=== PATIENT | male | born 1985 | race American Indian/Alaskan Native ===

== ENCOUNTER 2020-01-31 23:34 | Emergency (ER) | payer SELFPAY ==
[2020-01-31] MEDS ORDERED: ASPIRIN 325 MG TAB PO ONE (23:54)
[2020-02-01 00:34] LABS: Basophils % (Auto) 0.8 % (0.0-1.8); Eosinophils # (Auto) 0.1 K/mm3 (0.0-0.4); Eosinophils % (Auto) 1.6 % (0.0-4.3); Hematocrit 45.1 % (35.5-45.6); Hemoglobin 15.2 gm/dl (11.8-15.2); Lymphocytes # (Auto) 1.9 K/mm3 (1.2-5.4); Lymphocytes % (Auto) 31.3 % (13.4-35.0); Mean Corpuscular HGB Conc 34 % (32-34); Mean Corpuscular Volume 94 fl (84-94); Monocytes # (Auto) 0.5 K/mm3 (0.0-0.8); Monocytes % (Auto) 8.4 % (0.0-7.3); Platelet Count 275 K/mm3 (140-440); Red Blood Count 4.79 M/mm3 (3.65-5.03); Red Cell Distribution Width 14.5 % (13.2-15.2)
--- NOTE | 2020-02-01 00:34 | Emergency Department Report ---
ED Chest Pain HPI - General Chief Complaint: Chest Pain Stated Complaint: CHEST PAIN, DIFFICULTY IN BREATHING Time Seen by Provider: 02/01/20 00:20 Source: patient Mode of arrival: Ambulatory Limitations: No Limitations - History of Present Illness Initial Comments: This is a 34-year-old -[place] male who presents to the emergency department with a complaint of chest pain/discomfort that has been going on for the past 5 to 6 days. Sometimes the pain is left-sided, and other times he will feel it on the right side. The pain worsens with certain movements of his torso or upper extremities. Sometimes the pain is sharp and intense, but short lived. Other times the patient says "it just makes me feel weird in my chest and I not like that feeling." Currently the patient denies any pain at rest. He also denies any fever, back pain, shortness of breath, lower extremity swelling, nausea, vomiting or diaphoresis. Patient has tried Excedrin and aspirin at different times over the past few days without much relief. He does have a history of a previous pulmonary embolism from July of this year. He took Eliquis for about 3 to 4 months and then stopped it on his own as he thought he did not need it any further. He is a former smoker. No primary care physician. No recent travel or sick contacts at home. - Related Data Allergies Allergy/AdvReac Type Severity Reaction Status Date / Time No Known Allergies Allergy Verified 02/01/20 00:21 Heart Score - HEART Score History: Slightly suspicious EKG: Non-specific Age: < 45 Risk factors: No known risk factors Troponin: < normal limit HEART Score: 1 - Critical Actions Critical Actions: 0-3 pts:0.9-1.7%risk of adverse cardiac event.Candidate for discharge ED Review of Systems ROS: Stated complaint: CHEST PAIN, DIFFICULTY IN BREATHING Other details as noted in HPI Comment: All other systems reviewed and negative Constitutional: denies: chills, fever Eyes: denies: eye pain, vision change ENT: denies: ear pain, throat pain Respiratory: denies: cough, shortness of breath Cardiovascular: chest pain. denies: palpitations Gastrointestinal: denies: abdominal pain, vomiting Genitourinary: denies: dysuria, discharge Musculoskeletal: denies: back pain, arthralgia Skin: denies: rash, lesions Neurological: denies: headache, weakness ED Past Medical Hx - Past Medical History Hx Pulmonary Embolism: Yes (07/2019) - Surgical History Past Surgical History?: No - Social History Smoking Status: Never Smoker Substance Use Type: Alcohol, Marijuana ED Physical Exam - General Limitations: No Limitations - Other Other exam information: GENERAL: The patient is well-developed well-nourished. HENT: Normocephalic. Atraumatic. Patient has moist mucous membranes. EYES: Extraocular motions are intact. NECK: Supple. Trachea is midline. CHEST/LUNGS: Clear to auscultation. There is no respiratory distress noted. Un able to reproduce chest pain to palpation. However, able to elicit some pain with movement of the left upper extremity. HEART/CARDIOVASCULAR: Regular. There is no tachycardia. There is no murmur. ABDOMEN: Abdomen is soft, nontender. Patient has normal bowel sounds. SKIN: Skin is warm and dry. NEURO: The patient is awake, alert, and oriented. The patient is cooperative. The patient has no focal neurologic deficits. Normal speech. MUSCULOSKELETAL: There is no tenderness or deformity. There is no limitation range of motion. ED Course Vital Signs 01/31/20 02/01/20 23:51 04:18 Temperature 98.5 F Pulse Rate 76 Respiratory 18 20 Rate Blood Pressure 105/78 O2 Sat by Pulse 100 Oximetry - Reevaluation(s) Reevaluation #1: 02/01/20 04:44 Lab Results 02/01/20 02/01/20 02/01/20 Range/Units 00:18 00:18 00:28 WBC 6.1 (4.5-11.0) K/mm3 RBC 4.79 (3.65-5.03) M/mm3 Hgb 15.2 (11.8-15.2) gm/dl Hct 45.1 (35.5-45.6) % MCV 94 (84-94) fl MCH 32 (28-32) pg MCHC 34 (32-34) % RDW 14.5 (13.2-15.2) % Plt Count 275 (140-440) K/mm3 Lymph % (Auto) 31.3 (13.4-35.0) % Aiken % (Auto) 8.4 H (0.0-7.3) % Eos % (Auto) 1.6 (0.0-4.3) % Baso % (Auto) 0.8 (0.0-1.8) % Lymph # (Auto) 1.9 (1.2-5.4) K/mm3 Aiken # (Auto) 0.5 (0.0-0.8) K/mm3 Eos # (Auto) 0.1 (0.0-0.4) K/mm3 Baso # (Auto) 0.0 (0.0-0.1) K/mm3 Seg Neutrophils % 57.9 (40.0-70.0) % Seg Neutrophils # 3.5 (1.8-7.7) K/mm3 PT 12.7 (12.2-14.9) Sec. INR 0.96 (0.87-1.13) D-Dimer 135.00 (0-234) ng/mlDDU Sodium 137 (137-145) mmol/L Potassium 4.1 (3.6-5.0) mmol/L Chloride 100.7 (98-107) mmol/L Carbon Dioxide 24 (22-30) mmol/L Anion Gap 16 mmol/L BUN 11 (9-20) mg/dL Creatinine 1.0 (0.8-1.3) mg/dL Estimated GFR > 60 ml/min BUN/Creatinine Ratio 11 % Glucose 112 H (75-100) mg/dL Calcium 9.7 (8.4-10.2) mg/dL Troponin T < 0.010 (0.00-0.029) ng/mL 02/01/20 Range/Units 03:13 WBC (4.5-11.0) K/mm3 RBC (3.65-5.03) M/mm3 Hgb (11.8-15.2) gm/dl Hct (35.5-45.6) % MCV (84-94) fl MCH (28-32) pg MCHC (32-34) % RDW (13.2-15.2) % Plt Count (140-440) K/mm3 Lymph % (Auto) (13.4-35.0) % Aiken % (Auto) (0.0-7.3) % Eos % (Auto) (0.0-4.3) % Baso % (Auto) (0.0-1.8) % Lymph # (Auto) (1.2-5.4) K/mm3 Aiken # (Auto) (0.0-0.8) K/mm3 Eos # (Auto) (0.0-0.4) K/mm3 Baso # (Auto) (0.0-0.1) K/mm3 Seg Neutrophils % (40.0-70.0) % Seg Neutrophils # (1.8-7.7) K/mm3 PT (12.2-14.9) Sec. INR (0.87-1.13) D-Dimer (0-234) ng/mlDDU Sodium (137-145) mmol/L Potassium (3.6-5.0) mmol/L Chloride (98-107) mmol/L Carbon Dioxide (22-30) mmol/L Anion Gap mmol/L BUN (9-20) mg/dL Creatinine (0.8-1.3) mg/dL Estimated GFR ml/min BUN/Creatinine Ratio % Glucose (75-100) mg/dL Calcium (8.4-10.2) mg/dL Troponin T < 0.010 (0.00-0.029) ng/mL Reevaluation #2: 02/01/20 04:44 Vital Signs 01/31/20 02/01/20 23:51 04:18 Temperature 98.5 F Pulse Rate 76 Respiratory 18 20 Rate Blood Pressure 105/78 O2 Sat by Pulse 100 Oximetry MATTY score - Matty Score Age > 65: (0) No Aspirin use within the Past 7 Days: (0) No 3 or more CAD Risk Factors: (0) No 2 or more Angina events in past 24 hrs: (1) Yes Known CAD with more than 50% Stenosis: (0) No Elevated Cardiac Markers: (0) No ST Deviation Greater than 0.5mm: (1) Yes MATTY Score: 2 ED Medical Decision Making - Lab Data Result diagrams: 02/01/20 00:18 02/01/20 00:18 - EKG Data -: EKG Interpreted by Mi EKG shows normal: sinus rhythm, axis, intervals, QRS complexes (Right bundle branch block, Q waves to the inferior leads), ST-T waves Rate: normal - EKG Data When compared to previous EKG there are: previous EKG unavailable Interpretation: other (Sinus rhythm, normal axis, normal intervals, right bundle branch block, Q waves in inferior leads. No ST elevation myocardial infarction.) - Radiology Data Radiology results: report reviewed, image reviewed interpreted by me: Chest x-ray does not show any acute process. There are no pleural effusions, obvious pneumonia and there is no pneumothorax. No significant cardiomegaly. CTA CHEST WITH IV CONTRAST INDICATION / CLINICAL INFORMATION: CP, hx of PE. TECHNIQUE: Axial CT images were obtained through the chest after injection of 100 mL Omnipaque 350 IV contrast. 3 plane MIP and/or 3D reconstructions were produced. All CT scans at this location are p erformed using CT dose reduction for ALARA by means of automated exposure control. COMPARISON: Chest radiograph same day FINDINGS: PULMONARY ARTERIES: No pulmonary emboli. THORACIC AORTA: No significant abnormality. HEART: No significant abnormality. CORONARY ARTERIES: No significant calcification. PLEURA: No pleural effusion. No pneumothorax. LYMPH NODES: There is a mildly enlarged right axillary lymph node measuring up to 2.5 x 1.6 cm (series 2, image 16). LUNGS: No acute air space or interstitial disease. Mild to moderate paraseptal emphysema. ADDITIONAL FINDINGS: None. UPPER ABDOMEN: No acute findings. SKELETAL STRUCTURES: No significant osseous abnormality. IMPRESSION: 1. No CT evidence for pulmonary embolism. 2. No acute findings. 3. Paraseptal emphysema. 4. Mildly enlarged right axillary lymph node, nonspecific. Recommend clinical correlation for potential cause of a reactive lymph node, and consider short interval follow-up right axillary ultra sound in 3-6 months to ensure stability or resolution. - Medical Decision Making This patient presents to the emergency department with a complaint of a 5 to 6- day history of intermittent chest pain. The location of the patient's pain will change from left-sided to right-sided at different points. He denies any shortness of breath, back pain, vomiting, diaphoresis. On examination the heart and lung sounds are normal to auscultation. Unable to reproduce the pain to palpation of the chest wall. However, we were able to reproduce the pain with both passive and active movement of the left upper extremity. EKG shows a right bundle branch block but no morphology consistent with ST elevation myocardial infarction. Chest x-ray did not show any acute process. Patient's labs were mostly unremarkable including CBC, metabolic panel, and negative troponins x2. The patient did have a negative D-dimer. However, he has a history of recent pulmonary embolism with noncompliance with anticoagulation. For this reason I decided to do a CT angiography of the chest, but it did not show any pulmonary embolism. There was an incidental finding of some axillary lymphadenopathy and some septal emphysema. The patient is low on the heart and MATTY score. Vital signs have been reassuring throughout his ED course including being afebrile. For all these reasons the patient appears safe for discharge home at this time. His contact information has been sent over to the [facility] and vascular [place], and someone from their office should be contacting him shortly for close outpatient follow-up as part of our [facility] low risk chest pain protocol. He will return to the emergency department with any worsening of his symptoms or with any acute distress. Critical Care Time: No Critical care attestation.: If time is entered above; I have spent that time in minutes in the direct care of this critically ill patient, excluding procedure time. ED Disposition Clinical Impression: Intermittent chest pain, Right bundle branch block (RBBB) on electrocardiogram (ECG) Disposition: -01 TO HOME OR SELFCARE Is pt being admited?: No Condition: Stable Instructions: Right Bundle Branch Block, Nonspecific Chest Pain, Adult, Chest Pain (ED) Additional Instructions: Please follow-up with a primary care physician in the next few days. I am sending your contact information over to the [facility] [place], and someone from their office should be contacting you shortly for close outpatient follow-up. I will also give you a referral for one of their cardiologists in case you would like to make your own appointment. Return to the emergency department with any worsening of your symptoms, new or concerning symptoms not addressed during this current emergency department visit, or with any acute distress. Referrals: IRENE AQUINO MD [Primary Care Provider] - 2-3 Days RANGEL CONNER MD [Staff Physician] - 2-3 Days [facility] [Provider Group] - 2-3 Days Time of Disposition: 04:03
--- NOTE | 2020-02-01 00:48 | XRay Report ---
CHEST 1 VIEW INDICATION / CLINICAL INFORMATION: Chest Pain. COMPARISON: None available. FINDINGS: SUPPORT DEVICES: None. HEART / MEDIASTINUM: No significant abnormality. LUNGS / PLEURA: No significant pulmonary or pleural abnormality. No pneumothorax. ADDITIONAL FINDINGS: No significant additional findings. IMPRESSION: 1. No acute findings. Signer Name: Maura Lincoln MD Signed: 02/01/2020 12:44 AM Workstation Name: [id number]
[2020-02-01 00:52] LABS: BUN/Creatinine Ratio 11; Blood Urea Nitrogen 11 mg/dL (9-20); Calcium 9.7 mg/dL (8.4-10.2); Hemolysis Index 8
[2020-02-01 00:58] LABS: INR 0.96 (0.87-1.13)
--- NOTE | 2020-02-01 02:18 | Cat Scan Report ---
CTA CHEST WITH IV CONTRAST INDICATION / CLINICAL INFORMATION: CP, hx of PE. TECHNIQUE: Axial CT images were obtained through the chest after injection of 100 mL Omnipaque 350 IV contrast. 3 plane MIP and/or 3D reconstructions were produced. All CT scans at this location are performed usin g CT dose reduction for KAREEM by means of automated exposure control. COMPARISON: Chest radiograph same day FINDINGS: PULMONARY ARTERIES: No pulmonary emboli. THORACIC AORTA: No significant abnormality. HEART: No significant abnormality. CORONARY ARTERIES: No significant calcification. PLEURA: No pleural effusion. No pneumothorax. LYMPH NODES: There is a mildly enlarged right axillary lymph node measuring up to 2.5 x 1.6 cm (serie s 2, image 16). LUNGS: No acute air space or interstitial disease. Mild to moderate paraseptal emphysema. ADDITIONAL FINDINGS: None. UPPER ABDOMEN: No acute findings. SKELETAL STRUCTURES: No significant osseous abnormality. IMPRESSION: 1. No CT evidence for pulmonary embolism. 2. No acute findings. 3. Paraseptal emphysema. 4. Mildly enlarged right axillary lymph node, nonspecific. Recommend clinical correlation for potenti al cause of a reactive lymph node, and consider short interval follow-up right axillary ultrasound in 3-6 months to ensure stability or resolution. Signer Name: Maura Lincoln MD Signed: 02/01/2020 2:13 AM Workstation Name: Owned it
[2020-02-01] MEDS ORDERED: KETOROLAC 30 MG/1 ML INJ IV ONE (02:35)
[2020-02-01 05:00] VITALS: BP 116/74
== END 2020-02-01 05:30 | disposition home or self-care (01) ==
LOC: ED 23:34
DX: R07.89 Other chest pain (principal); I45.19 Other right bundle-branch block
CPT/HCPCS: 36415; 71045; 71275; 80048; 84484; 85025; 85379; 85610; 93005; 96374; 99285; J1885; Q9967

== ENCOUNTER 2021-08-01 22:26 | Emergency (ER) | payer SELFPAY ==
[2021-08-01] MEDS ORDERED: ASPIRIN 325 MG TAB PO ONE (22:38)
--- NOTE | 2021-08-01 23:03 | XRay Report ---
CHEST 2 VIEWS INDICATION / CLINICAL INFORMATION: CHEST PAIN. COMPARISON: 02/01/2020 FINDINGS: SUPPORT DEVICES: None. HEART / MEDIASTINUM: No significant abnormality. LUNGS / PLEURA: No significant pulmonary or pleural abnormality. No pneumothorax. ADDITIONAL FINDINGS: No significant additional findings. IMPRESSION: 1. No acute findings. Signer Name: Fahad Johnston MD Signed: 08/01/2021 10:58 PM Workstation Name: [id number]
[2021-08-01 23:44] LABS: Basophils # (Auto) 0.1 K/mm3 (0.0-0.1); Eosinophils # (Auto) 0.1 K/mm3 (0.0-0.4); Eosinophils % (Auto) 1.2 % (0.0-4.3); Hematocrit 41.3 % (35.5-45.6); Hemoglobin 13.7 gm/dl (11.8-15.2); Lymphocytes % (Auto) 34.9 % (13.4-35.0); Mean Corpuscular HGB Conc 33 % (32-34); Mean Corpuscular Volume 93 fl (84-94); Monocytes # (Auto) 0.4 K/mm3 (0.0-0.8); Monocytes % (Auto) 7.8 % (0.0-7.3); Platelet Count 257 K/mm3 (140-440); Red Blood Count 4.43 M/mm3 (3.65-5.03); Red Cell Distribution Width 13.4 % (13.2-15.2)
[2021-08-01 23:56] LABS: Alanine Aminotransferase 18 units/L (7-56); Albumin 4.4 g/dL (3.9-5); BUN/Creatinine Ratio 18; Blood Urea Nitrogen 16 mg/dL (9-20); Calcium 10.3 mg/dL (8.4-10.2); Hemolysis Index 5
--- NOTE | 2021-08-02 15:08 | Emergency Department Report ---
ED Chest Pain HPI - General Chief Complaint: Chest Pain Stated Complaint: CHEST PAIN/SOB Source: patient Mode of arrival: Ambulatory Limitations: No Limitations - History of Present Illness MD Complaint: chest pain (Substernal chest wall pain that radiates to the left chest wall with shortness of breath), other (24) -: week(s) (2) Onset: during exertion, other (Heavy lifting at work) Pain Location: substernal, left chest Pain Radiation: none Severity: moderate Severity scale (0 -10): 6 Quality: aching, sharp Consistency: constant Improves With: rest Worsens With: palpation, movement, other (Heavy lifting) re: dyspnea. denies: nausea, vomting, diaphoresis, sense of impending doom, other Other Symptoms: denies: cough, fever, syncope, rash, acid taste in mouth, leg swelling, palpitations, burping, other Treatments Prior to Arrival: none Aspirin use within the Past 7 Days: (0) No - Related Data On Oral Contraceptives: No Previous Rx's Medication Instructions Recorded Last Taken Type Famotidine [Pepcid] 20 mg PO BID #60 tablet 08/02/21 Unknown Rx Naproxen 500 mg PO Q12H PRN #30 tab 08/02/21 Unknown Rx Allergies Allergy/AdvReac Type Severity Reaction Status Date / Time No Known Allergies Allergy Verified 02/01/20 00:21 Heart Score - HEART Score History: Slightly suspicious EKG: Non-specific Age: < 45 Risk factors: No known risk factors Troponin: < normal limit HEART Score: 1 - EKG Read Time Time EKG Completed: 22:33 EKG Read Time: 22:36 - Critical Actions Critical Actions: 0-3 pts:0.9-1.7%risk of adverse cardiac event.Candidate for discharge ED Review of Systems ROS: Stated complaint: CHEST PAIN/SOB Other details as noted in HPI Constitutional: denies: chills, fever Eyes: denies: eye pain, eye discharge, vision change ENT: denies: ear pain, throat pain Respiratory: shortness of breath. denies: cough, wheezing Cardiovascular: chest pain (Substernal chest pain that radiates to the left chest wall). denies: palpitations Endocrine: no symptoms reported Gastrointestinal: denies: abdominal pain, nausea, vomiting, diarrhea Genitourinary: denies: urgency, dysuria Musculoskeletal: denies: back pain, joint swelling, arthralgia Skin: denies: rash, lesions Neurological: denies: headache, weakness, paresthesias Psychiatric: denies: anxiety, depression Hematological/Lymphatic: denies: easy bleeding, easy bruising ED Past Medical Hx - Past Medical History Hx Pulmonary Embolism: Yes (07/2019) - Social History Smoking Status: Never Smoker Substance Use Type: Alcohol, Marijuana - Medications Home Medications: Home Medications Medication Instructions Recorded Confirmed Last Taken Type Famotidine [Pepcid] 20 mg PO BID #60 tablet 08/02/21 Unknown Rx Naproxen 500 mg PO Q12H PRN #30 tab 08/02/21 Unknown Rx ED Physical Exam - General Limitations: No Limitations General appearance: alert, in no apparent distress - Head Head exam: Present: atraumatic, normocephalic, normal inspection - Eye Eye exam: Present: normal appearance, PERRL, EOMI Pupils: Present: normal accommodation - ENT ENT exam: Present: normal exam, normal orophraynx, mucous membranes moist, TM's normal bilaterally, normal external ear exam - Neck Neck exam: Present: normal inspection, full ROM. Absent: tenderness - Respiratory Respiratory exam: Present: normal lung sounds bilaterally, chest wall tenderness (Palpable reproducible anterior chest wall tenderness). Absent: respiratory distress, wheezes, rales, rhonchi, stridor, accessory muscle use, decreased b reath sounds, prolonged expiratory - Cardiovascular Cardiovascular Exam: Present: regular rate, normal rhythm, normal heart sounds. Absent: systolic murmur, diastolic murmur, rubs, gallop - GI/Abdominal GI/Abdominal exam: Present: soft, normal bowel sounds. Absent: tenderness, guarding, rebound, hyperactive bowel sounds, hypoactive bowel sounds, organomegaly - Extremities Exam Extremities exam: Present: normal inspection, full ROM, normal capillary refill - Back Exam Back exam: Present: normal inspection, full ROM. Absent: tenderness, CVA tenderness (R), CVA tenderness (L), muscle spasm, paraspinal tenderness, vertebral tenderness - Neurological Exam Neurological exam: Present: alert, oriented X3, CN II-XII intact, normal gait, reflexes normal - Psychiatric Psychiatric exam: Present: normal affect, normal mood - Skin Skin exam: Present: warm, dry, intact, normal color. Absent: rash ED Course Vital Signs 08/01/21 22:29 Temperature 98.4 F Pulse Rate 78 Respiratory 20 Rate Blood Pressure 116/69 O2 Sat by Pulse 96 Oximetry BRADFORD score - Bradford Score Age > 65: (0) No Aspirin use within the Past 7 Days: (0) No 3 or more CAD Risk Factors: (0) No 2 or more Angina events in past 24 hrs: (0) No Known CAD with more than 50% Stenosis: (0) No Elevated Cardiac Markers: (0) No ST Deviation Greater than 0.5mm: (0) No BRADFORD Score: 0 ED Medical Decision Making - Lab Data Result diagrams: 08/01/21 23:12 08/01/21 23:12 - EKG Data EKG shows normal: sinus rhythm Rate: normal - EKG Data Interpretation: normal EKG 08/02/21 15:21 The EKG shows normal sinus rhythm with a ventricular rate of 77 bpm and a right bundle branch block which is chronic. - Radiology Data Radiology results: report reviewed, [place] [address] XRay Report Signed Patient: DAVID ANGELES MR #: [id number] : 1985 Acct:[id number] Age/Sex: 36 / M ADM Date: 08/01/21 Loc: ED Attending Dr: Ordering Physician: FREDDY SILVERIO MD Date of Service: 08/01/21 Procedure(s): XR chest routine 2V Accession Number(s): [id number] cc: ED MD NUSRAT Fluoro Time In Minutes: CHEST 2 VIEWS INDICATION / CLINICAL INFORMATION: CHEST PAIN. COMPARISON: 02/01/2020 FINDINGS: SUPPORT DEVICES: None. HEART / MEDIASTINUM: No significant abnormality. LUNGS / PLEURA: No significant pulmonary or pleural abnormality. No pneumothorax. ADDITIONAL FINDINGS: No significant additional findings. IMPRESSION: 1. No acute findings. Signer Name: Fahad Johnston MD Signed: 08/01/2021 10:58 PM Workstation Name: [id number] Transcribed By: TL Dictated By: Fahad Johnston MD Electronically Authenticated By: Fahad Johnston MD Signed Date/Time: 08/01/212257 DD/ 57 TD/TT: - Differential Diagnosis ACS; PE; pneumonia; costochondritis; dissection; muscle strain; Critical care attestation.: If time is entered above; I have spent that time in minutes in the direct care of this critically ill patient, excluding procedure time. ED Disposition Clinical Impression: Acute costochondritis, Nonspecific chest pain, Muscle strain of anterior chest wall Disposition: HOME / SELF CARE / HOMELESS Is pt being admited?: No Does the pt Need Aspirin: No Condition: Stable Instructions: Costochondritis, [id number], Chest Wall Pain, [id number], Muscle Strain, [id number], Nonspecific Chest Pain, Adult, [id number] Additional Instructions: All lab test results were reviewed and are all nonactionable. Chest x-ray showed no acute cardiopulmonary abnormalities or pneumonitis. Your risk factors for cardiac disease is 1, meaning that it is highly unlikely that your symptoms are due to a coronary artery disease. Based on the history and physical exam findings,, lab test results and imaging report, your symptoms are likely due to muscle strain or costochondritis which is an inflammation of your chest wall mus cles due to heavy lifting at work. Therefore take medication as needed for pain, drink plenty of fluids, follow-up with your primary care physician in 7 to 10 days for reevaluation or return to the ED immediately if symptoms get worse. Prescriptions: Naproxen 500 mg PO Q12H PRN #30 tab PRN Reason: Pain , Severe (7-10) Famotidine [Pepcid] 20 mg PO BID #60 tablet Referrals: [facility] [Provider Group] - 7-10 days Forms: Work/School Release Form(ED) Time of Disposition: 15:13 Print Language: NORTHERN IRISH
[2021-08-02 15:43] VITALS: BP 128/86
--- NOTE | 2021-08-03 12:05 | Electrocardiograph Report ---
[facility] Test Date: 2021-08-01 Test Time: 22:33:04 Pat Name: DAVID ANGELES Department: Room: Gender: M Service Operations Manager: JAMIL : 1985 Requested By: ED DOC Order Number: [id number] Reading MD: Benjamin Merlos Measurements Intervals [place] Rate: 77 P: 41 OK: 144 QRS: 89 QRSD: 130 T: 62 QT: 397 QTc: 450 Interpretive Statements Sinus rhythm RIGHT BUNDLE BRANCH BLOCK No previous ECG available for comparison Electronically Signed On 08-03-2021 12:05:27 EDT by Benjamin Merlos
== END 2021-08-02 15:38 | disposition home or self-care (01) ==
LOC: ED 22:26
DX: S29.011A Strain of muscle and tendon of front wall of thorax, initial encounter (principal); S21.102A Unspecified open wound of left front wall of thorax without penetration into thoracic cavity, initial encounter; M94.0 Chondrocostal junction syndrome [Tietze]; I26.99 Other pulmonary embolism without acute cor pulmonale; X58.XXXA Exposure to other specified factors, initial encounter; Y93.89 Activity, other specified; Y92.89 Other specified places as the place of occurrence of the external cause; Y99.8 Other external cause status
CPT/HCPCS: 36415; 71046; 80053; 84484; 85025; 93005; 99284